=== PATIENT | male | born 1960 | race Caucasian/White ===

== ENCOUNTER 2020-04-21 05:03 | Emergency (ER) | payer OTHER ==
[~2020-04-21] VITALS: Ht 172.7 cm; Wt 99.8 kg
--- NOTE | 2020-04-21 05:16 | NUR ---
PT TAKEN TO BED 7
[2020-04-21 05:18] VITALS: BP 154/75
--- NOTE | 2020-04-21 05:18 | NUR ---
Judy robles in [facility] - 04/21/20 at [address] Puga examining patient.
--- NOTE | 2020-04-21 05:20 | NUR ---
59 YO MALE CO SINUS ISSUES FOR ABOUT 2 YEARS. PT STATES THAT HIS NOSE IS CONGESTED AND UNABLE TO SLEEP. NO PMH, NO NKA AND NO RX
--- NOTE | 2020-04-21 05:24 | NUR ---
Dr. Puga examining patient.
[2020-04-21] MEDS: diphenhydrAMINE 50 MG CAP PO STA (05:38)
--- NOTE | 2020-04-21 05:39 | NUR ---
GAVE PT RX PER MED ORDERS. ADV PT THAT HE NEEDS TO HAVE HIS DRIVE HOME HOME DUE TO DROWSINESS. PT VERBALIZED UNDERSTANDING.
[2020-04-21 05:45] VITALS: BP 154/75
--- NOTE | 2020-04-21 05:45 | NUR ---
Patient discharged with v/s stable. Written and verbal after care instructions given and explained. Patient alert, oriented and verbalized understanding of instructions. Ambulatory with steady gait. All questions addressed prior to discharge. ID band removed. Patient advised to follow up with PMD. Rx of GUIFENESIN, SALINE NASAL SPRAY AND DOXYCYCLINE given. Patient educated on indication of medication including possible reaction and side effects. Opportunity to ask questions provided and answered.
== END 2020-04-21 05:45 | disposition home or self-care (01) ==
LOC: MED 05:03
DX: J32.9 Chronic sinusitis, unspecified (principal)
CPT/HCPCS: 99283; Q0163

== ENCOUNTER 2020-04-29 08:04 | Emergency (ER) | payer OTHER ==
[~2020-04-29] VITALS: Ht 172.7 cm; Wt 99.8 kg
[2020-04-29 08:17] VITALS: BP_SYST 128; BP_SYST 178; BP_DIAS 66
[2020-04-29 09:13] VITALS: BP 128/66
== END 2020-04-29 09:13 | disposition home or self-care (01) ==
LOC: MED 08:04
DX: J30.9 Allergic rhinitis, unspecified (principal)
CPT/HCPCS: 71045; 99283

== ENCOUNTER 2021-02-14 11:09 | Emergency (ER) | payer OTHER ==
[~2021-02-14] VITALS: Ht 170.2 cm; Wt 77.6 kg
[2021-02-14 11:13] VITALS: BP 148/85
[2021-02-14] MEDS: LIDOCAINE MPF 1% 10 MG/ML VIAL INJ ONE (11:29)
[2021-02-14 12:50] VITALS: BP 148/85
== END 2021-02-14 12:50 | disposition home or self-care (01) ==
LOC: MED 11:09
DX: S60.551A Superficial foreign body of right hand, initial encounter (principal); W25.XXXA Contact with sharp glass, initial encounter; Y93.89 Activity, other specified; Y92.89 Other specified places as the place of occurrence of the external cause; Y99.8 Other external cause status
CPT/HCPCS: 73120; 90471; 90715; 99284; J2001

== ENCOUNTER 2021-05-26 16:51 | Emergency (ER) | payer OTHER ==
[~2021-05-26] VITALS: Ht 172.7 cm; Wt 68.0 kg
[2021-05-26 17:14] VITALS: BP 135/76
--- NOTE | 2021-05-26 17:22 | NUR ---
PT TO WAIT IN TENT.
[2021-05-26] MEDS ORDERED: IBUP-2213 PO (18:33)
[2021-05-26] MEDS ORDERED: ACET-8386 PO (18:33)
[2021-05-26 19:47] VITALS: BP 135/76
--- NOTE | 2021-05-26 19:47 | NUR ---
Patient discharged with v/s stable. Written and verbal after care instructions given and explained. Patient verbalized understanding. Ambulatory with steady gait. All questions addressed prior to discharge. Advised to follow up with PMD.
== END 2021-05-26 19:47 | disposition home or self-care (01) ==
LOC: MED 16:51
DX: M25.531 Pain in right wrist (principal); R09.81 Nasal congestion; W18.2XXA Fall in (into) shower or empty bathtub, initial encounter; Y93.89 Activity, other specified; Y92.89 Other specified places as the place of occurrence of the external cause; Y99.8 Other external cause status
CPT/HCPCS: 73110; 73200; 99284

== ENCOUNTER 2021-10-25 12:53 | Emergency (ER) | payer OTHER ==
[~2021-10-25] VITALS: Ht 172.7 cm; Wt 96.2 kg
[~2021-10-25 12:53] MED LIST: ACET-8386 PO; IBUP-2213 PO
[2021-10-25 13:04] VITALS: BP 141/76
--- NOTE | 2021-10-25 13:07 | NUR ---
PT SENT TO LOBBY
[2021-10-25] MEDS ORDERED: MORPHINE SULFATE 4 MG/ML SYR IM ONE (13:20)
--- NOTE | 2021-10-25 13:23 | NUR ---
61/M BIB SELF WITH C/O NECK PAIN X2 DAYS, DENIES RECENT INJURY OR TRAUMA, STATES HE WOKE UP WITH PAIN. PATIENT REPORTS TAKING UNKNOWN MEDICATION FOR PAIN AT HOME WITH SOME RELIEF. DENIES HEADACHE OR DIZZINESS, STATES NECK FEELS STIFF AND HE IS UNABLE TO TURN HIS HEAD.
[2021-10-25] MEDS ORDERED: ACET-8386 PO (13:35)
--- NOTE | 2021-10-25 14:12 | NUR ---
Patient discharged with v/s stable. Written and verbal after care instructions ABOUT CERVICAL STRAIN AND SPRAIN REHAB given and explained. Patient alert, oriented and verbalized understanding of instructions. Ambulatory with steady gait. All questions addressed prior to discharge. ID band removed. Patient advised to follow up with PMD. Rx of NORCO 5-325MG given. Patient educated on indication of medication including possible reaction and side effects. Opportunity to ask questions provided and answered.
== END 2021-10-25 14:12 | disposition home or self-care (01) ==
LOC: MED 12:53
DX: S16.1XXA Strain of muscle, fascia and tendon at neck level, initial encounter (principal); Z79.899 Other long term (current) drug therapy; X58.XXXA Exposure to other specified factors, initial encounter; Y93.89 Activity, other specified; Y92.89 Other specified places as the place of occurrence of the external cause; Y99.8 Other external cause status
CPT/HCPCS: 96372; 99283; J2270

== ENCOUNTER 2022-08-22 15:47 | Emergency (ER) | payer OTHER ==
[~2022-08-22] VITALS: Ht 172.7 cm; Wt 97.1 kg
[2022-08-22 16:34] VITALS: BP 120/77
[2022-08-22] MEDS ORDERED: HYD1C TP (18:02)
== END 2022-08-22 18:00 | disposition home or self-care (01) ==
LOC: MED 15:47
DX: L20.9 Atopic dermatitis, unspecified (principal)
CPT/HCPCS: 99282

== ENCOUNTER 2023-05-26 13:09 | Emergency (ER) | payer OTHER ==
[~2023-05-26] VITALS: Ht 172.7 cm; Wt 98.4 kg
[~2023-05-26 13:09] MED LIST changes: -ACET-8386 PO; +ACET-8905 PO; +HYD1C TP
[2023-05-26 13:24] VITALS: BP 136/77; PULSE 71; RESP 14; TEMP 97.8; O2SAT 96
[2023-05-26 15:32] VITALS: BP 131/76; PULSE 69; RESP 16; TEMP 98.1; O2SAT 98
== END 2023-05-26 15:32 | disposition home or self-care (01) ==
LOC: MED 13:09
DX: S61.232A Puncture wound without foreign body of right middle finger without damage to nail, initial encounter (principal); X58.XXXA Exposure to other specified factors, initial encounter; Y93.89 Activity, other specified; Y92.89 Other specified places as the place of occurrence of the external cause; Y99.8 Other external cause status
CPT/HCPCS: 73140; 99283